=== PATIENT | female | born 1985 | race Caucasian/White ===

== ENCOUNTER 2021-07-05 16:03 | Emergency (ER) | payer OTHER ==
[~2021-07-05] VITALS: Ht 157.5 cm; Wt 51.3 kg
[2021-07-05] MEDS ORDERED: KEPPRA500 MG PO (16:15)
[2021-07-05] MEDS ORDERED: MEDROLPACK PO (16:39)
== END 2021-07-05 16:57 | disposition home or self-care (01) ==
LOC: ER 16:03
DX: G51.0 Bell's palsy (principal)

== ENCOUNTER 2022-05-02 13:50 | Emergency (ER) | payer OTHER ==
[~2022-05-02] VITALS: Ht 157.5 cm; Wt 60.3 kg
[~2022-05-02 13:50] MED LIST: KEPPRA500 MG PO; MEDROLPACK PO
== END 2022-05-02 17:31 | disposition home or self-care (01) ==
LOC: ER 13:50
DX: G51.0 Bell's palsy (principal); M54.50 Low back pain, unspecified; M46.1 Sacroiliitis, not elsewhere classified

== ENCOUNTER 2022-09-18 15:13 | Outpatient (CLI) | payer OTHER | END 2022-09-18 15:22 | disposition home or self-care (01) | LOC: SONOGRAMA 15:13 | DX: R19.00 Intra-abdominal and pelvic swelling, mass and lump, unspecified site (principal) ==

== ENCOUNTER 2024-05-23 12:12 | Emergency (ER) | payer OTHER ==
[~2024-05-23] VITALS: Ht 157.5 cm; Wt 56.7 kg
[2024-05-23 15:32] LABS: HEMATOCRIT 37.5 % (36.0-45.00); HEMOGLOBIN 12.6 g/dL (12.0-15.00); MEAN CELL VOLUME 90.4 fL (80.00-100.00); MEAN CORPUSCULAR HEMOGLOBIN 30.2 pg (27.00-32.0); MEAN CORPUSCULAR HGB CONC 33.5 g/dl (32.0-36.0); PLATELET COUNT 169 K/uL (150-450); RED BLOOD COUNT 4.15 M/uL (4.00-6.00); RED CELL DISTRIBUTION WIDTH 12.4 % (11.5-14.5)
[2024-05-23 16:00] LABS: ALBUMIN 3.5 gm/dL (3.4-5.0); BILIRUBIN TOTAL 0.28 mg/dL (0.3-1.2); CALCIUM 9.1 mg/dL (8.5-10.1); CREATININE SERUM 1.12 mg/dL (0.55-1.02); GFR 54.16; GLOBULINA 2.8 G/DL (2.4-3.5); POTASSIUM 3.93 mEq/L (3.5-5.1); TOTAL PROTEIN 6.3 gm/dL (6.4-8.2)
== END 2024-05-23 18:18 | disposition home or self-care (01) ==
LOC: ER 12:15
PROVIDERS: General Practice
DX: R07.89 Other chest pain (principal); R53.81 Other malaise; F17.210 Nicotine dependence, cigarettes, uncomplicated; Z87.09 Personal history of other diseases of the respiratory system